=== PATIENT | male | born 1960 | race Caucasian/White ===

== ENCOUNTER 2018-08-16 09:48 | Inpatient (IN) | payer SELFPAY ==
[2018-08-16 10:16] LABS: #Basophils 0.1 thou/uL (0.0-0.2); #Eosinphils 0.1 thou/uL (0.0-0.7); #Lymphocytes 1.2 thou/uL (1.20-3.40); #Monocytes 0.8 thou/uL (0.11-0.59); #Neutrophils 7.5 thou/uL (1.40-6.50); %Basophils 0.7 % (0.0-1.0); %Eosinophils 0.6 % (0.0-10.0); %Lymphocytes 12.5 % (21.0-51.0); %Monocytes 7.8 % (0.0-10.0); %Neutrophils 78.4 % (42.0-75.0); Mean Corpuscular HGB CONC 32.7 g/dL (32.0-36.0); Mean Corpuscular Hemoglobin 30.1 pg (27.0-31.0); Mean Corpuscular Volume 92.1 fL (78.0-98.0); Mean Platelet Volume 6.7 fL (7.4-10.4); Platelet Count 483 thou/uL (130-400); RBC Distribution Width 11.8 % (11.5-14.5); Red Blood Cell (RBC) Count 4.65 mill/uL (4.70-6.10); White Blood Cell (WBC) Count 9.6 thou/uL (4.8-10.8)
[2018-08-16 10:39] LABS: ALT (SGPT) 29 U/L (8-55); AST (SGOT) 25 U/L (5-34); Albumin 4.1 g/dL (3.5-5.0); Alkaline Phosphatase 99 U/L (40-150); Anion Gap 15 mmol/L (10-20); BUN (Urea Nitrogen) 30 mg/dL (8.4-25.7); Bilirubin, Total 0.4 mg/dL (0.2-1.2); Calc. Creatinine Clearance 0 mL/min (70-130); Calcium 9.6 mg/dL (7.8-10.44); Carbon Dioxide 25 mmol/L (22-29); Chloride 102 mmol/L (98-107); Estimated GFR-MDRD 67; Globulin 2.8 g/dL (2.4-3.5); Glucose 145 mg/dL (70-105); Lipase 50 U/L (8-78); Potassium 4.5 mmol/L (3.5-5.1); Protein, Total 6.9 g/dL (6.0-8.3); Sodium 137 mmol/L (136-145)
--- NOTE | 2018-08-16 11:06 | RAD ---
RADIOGRAPH CHEST 1 VIEW: Date: 08/16/18 Time: 1036 HOURS HISTORY: 57-year-old female with dyspnea and chest pain. COMPARISON: 08/09/18. FINDINGS: Hyperinflation consistent with COPD. No pulmonary edema. The interstitial markings are less prominent on the current study compared to previous. Perhaps that is partly or entirely due to technical diffe rences. There are bilateral small to moderate size pleural effusions demonstrated on the CT angiogram of 08/09/18, that are underestimated in size on the single AP views. Prominent interstitial lung mar kings at the lung bases, left greater than right. No pneumothorax. Accounting for technical differenc es, there has probably been no major interval change. IMPRESSION: 1. Bilateral small pleural effusions. 2. Emphysema. 3. Probably no major interval change since 08/09/18. JN [] POS: CET
[2018-08-16 12:11] LABS: CKMB 10.3 ng/mL (0-6.6)
[2018-08-16] MEDS ORDERED: Furosemide 40 MG/4 ML VIAL ONE (12:24)
[2018-08-16] MEDS ORDERED: Nitroglycerin 2% Ointment 1 INCH/1 GM Packet ONE (12:24)
[2018-08-16] MEDS ORDERED: Aspirin Chewable 81 MG TAB ONE (12:24)
[2018-08-16 12:40] LABS: CK (CPK) 135 U/L (30-200); Magnesium 2.2 mg/dL (1.6-2.6); Phosphorus 3.1 mg/dL (2.3-4.7)
[2018-08-16 14:50] VITALS: BMI 17.9
[2018-08-16 14:52] LABS: Critical Call CKMB RESULT DECREASING
[2018-08-16] MEDS ORDERED: Acetaminophen 325 MG TAB PO PRN (15:45)
[2018-08-16] MEDS ORDERED: Zolpidem Tartrate 5 MG TAB PO PRN (15:45)
[2018-08-16] MEDS ORDERED: Ondansetron ODT 4 MG TAB PO PRN (15:45)
[2018-08-16] MEDS ORDERED: Nitroglycerin 0.4 MG TAB (25 Tab Bottle) SL PRN (15:48)
[2018-08-16] MEDS ORDERED: Communication Order-Pharmacy FS SCH (17:00)
--- NOTE | 2018-08-16 17:00 | HP ---
PRIMARY CARE PHYSICIAN: No PCP. HISTORY AND PHYSICAL: The patient was referred to [facility] by [facility]. The patient had an episode of chest pain 7 days ago. He said it was severe, tight, lasted hours, had some nausea with it, but no radiation, shortness of breath, or sweats that he notes. He has had about 2 months of dyspnea on exertion, worse the past 2 weeks. He denies any orthopnea or any paroxysmal nocturnal dyspnea. PAST MEDICAL HISTORY: None. MEDICATIONS: None. ALLERGIES: NONE. PAST SURGICAL HISTORY: T and A at 7 years of age. FAMILY HISTORY: Mother developed coronary artery disease in her 40s. His maternal grandparents had coronary artery disease. The patient is single. He smoked in the past for about 30 years, quit 20 years ago. Alcohol, he drinks 3 to 4 beers at night. He is an manufacturing electrician. REVIEW OF SYSTEMS: GENERAL: No headaches, dizziness, or fainting. HEENT: Eyes; some blurry vision at time. No double vision or flashing lights. Ears, nose, and throat; no ear pain or drainage. No nasal bleeding. No trouble swallowing. CARDIAC: See present illness. RESPIRATIONS: He said he has occasional wheezing. No cough of note. No history of asthma or COPD. GASTROINTESTINAL: No nausea, vomiting, diarrhea, or constipation except for nausea a week ago with his chest discomfort. GENITOURINARY: His stream is a little slow, but no hematuria or dysuria. MUSCULOSKELETAL: No pain or swelling in his arms or legs. NEUROLOGIC: No history of strokes, seizures, or focal weakness. PSYCHIATRIC: He has as he says typical anxieties and depression feelings occasionally, but has never had medicines. It is not a chronic or severe thing. SKIN: No bruising, bleeding, or rash. HEME/LYMPH: No tender or swollen lymph nodes in axilla, inguinal, or cervical area. PHYSICAL EXAMINATION: GENERAL: He is a pleasant gentleman, in no acute distress, looking a bit older than stated age, oriented x3. VITAL SIGNS: Done in the emergency room revealed blood pressure 124/88, pulse 93, respirations 14, temperature 97.5, O2 saturation 93% on room air. HEAD, EYES, EARS, NOSE, AND THROAT: Revealed pupils are equal, round, and reactive to light. Extraocular movements are intact. Sclerae are white. Tympanic membranes are clear. Nose is clear. Oral mucous membranes are wet. Dental hygiene is good. NECK: Supple without jugular venous distention, adenopathy, or thyromegaly. CHEST: Hyper-resonant with decreased somewhat vesicular breath sounds. Some scant rales in the bases. HEART: He has a regular rate and rhythm. He was a little bit tachycardic when I examined him about 120. He had no significant murmur or gallop. ABDOMEN: Soft. Bowel sounds are normal. There is no hepatosplenomegaly. No mass. No rebound. No bruits. EXTREMITIES: Revealed no cyanosis, clubbing, or edema. PULSES: Carotid, radial, and femoral pulses are intact. Pedal pulses are diminished symmetrically. SKIN: Warm and dry without bruises or rash. HEME/LYMPH: No tender or swollen lymph nodes in axilla, inguinal, or cervical area. NEUROLOGIC: Cranial nerves 2 through 12 are intact. Moves all extremities. Toes are downgoing. DIAGNOSTIC DATA: EKG: Regular sinus rhythm, poor R-wave progression in the precordial leads, T-wave inversion in the lateral precordial leads, reviewed by me. Chest x-ray shows marked hyperinflation, no cardiomegaly with some basilar small effusions, reviewed by me. LABORATORY DATA: CBC: White count 9.6, hemoglobin 14.0, platelet count 483,000. Chemistries: Metabolic profile shows lytes; sodium 137, potassium 4.5, CO2 of 25, BUN 30, creatinine 1.13, glucose 145, hemoglobin A1c 6.0. CK 135. Serial cardiac enzymes; CK-MB 10.3, then 9.0; troponin 0.054, then 0.058. BNP is 4636.1. ADMITTING DIAGNOSES: 1. Chest pain, suspicious for cardiac 1 week ago. 2. Dyspnea on exertion with chronic obstructive pulmonary disease. 3. Elevated troponins. 4. History of tobacco abuse in the past. PLAN: He has been started on aspirin. Echocardiogram has been ordered. Serial troponins will be continued. I have discussed this patient's situation with Dr. Pedro. He will see him today. For his COPD, I will start him on DuoNeb q.6 hours and Dulera 2 puffs twice a day. Suspect he will go to cardiac catheterization during this admission. Job ID: [id number]
[2018-08-16 17:14] LABS: Troponin I 0.061 ng/mL (< 0.028)
[2018-08-16] MEDS: Mometasone/Formoterol 120 PUFF INHALER INH SCH (18:43)
[2018-08-16] MEDS ORDERED: Nitroglycerin 2% Ointment 1 INCH/1 GM Packet TOP SCH (21:00)
--- NOTE | 2018-08-16 23:51 | CON ---
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 Over the past 2 weeks, he has began to notice exertional shortness of breath. At times, he may have some vague chest discomfort with those episodes, but in general, his main complaint is shortness of breath. He denies any peripheral edema, PND, or orthopnea. His breathing got so bad on August 09 that he went to his sister who lives next door and took 2 of her breathing treatments. He then began to have severe chest tightness and went to the emergency room in [place]. He was found to have CK-MB of 7.8, total CK of 116, and troponin I 0.044. Nitro paste was applied. He states that his discomfort rapidly resolved. He said they wanted to transport him here by helicopter, however, he declined and went home. Since then, he has continued to have significant exertional dyspnea. He started to have problems again with increased shortness of breath. He continued to have exertional dyspnea, so decided to come here directly for further evaluation. He denies any fever or cough. PAST MEDICAL HISTORY: He denies any history of hypertension, diabetes, hypercholesterolemia. MEDICATIONS: None. ALLERGIES: NONE. OPERATIONS: Tonsillectomy. SOCIAL HISTORY: He smoked one pack per day, but stopped 20 years ago. He states he has 3 beers per day. He works as an electrician marine. FAMILY HISTORY: Negative for coronary artery disease or myocardial infarction. REVIEW OF SYSTEMS: 12-point review of systems is otherwise unremarkable. PHYSICAL EXAMINATION: VITAL SIGNS: Blood pressure 117/68, pulse of 95. HEENT: PERRL. NECK: Supple. CHEST: Reveals expiratory wheezing throughout and some crackles at the bases. CARDIOVASCULAR EXAMINATION: S1, S2 normal without any S3, S4, or murmurs. ABDOMEN: Normal bowel sounds without tenderness, organomegaly. EXTREMITIES: Reveal no clubbing, cyanosis, or edema. NEUROLOGIC: Grossly intact. SKIN: Warm and dry. LABORATORY DATA: EKG revealed normal sinus rhythm, possible left atrial enlargement, lateral T-wave inversion. Chest CTA in [place] on August 09, 2018, revealed no evidence of pulmonary embolism. There are bilateral effusions. It is of note that there was no mention of any coronary artery calcifications. Chest x-ray here today revealed bilateral small pleural effusions, COPD. Hemoglobin 14.0, hematocrit 42.8, white count 9600, platelets 483,000. Sodium 137, potassium 4.5 , chloride 102, carbon dioxide 25, BUN 30, creatinine 1.13, glucose 145, BNP 4636. I do not see any troponins from the emergency room here. IMPRESSION: 1. Probable congestive heart failure with severely elevated BNP and finding of bilateral pleural effusions on chest x-ray. 2. Probable chronic obstructive pulmonary disease exacerbation. 3. Probable acute coronary artery syndrome with prolonged episode of chest discomfort and mildly elevated cardiac enzymes. 4. Former smoker. 5. ETOH use of 3 beers per day, although other he told other physicians that he has 5 drinks per day. If he does have a cardiomyopathy, it certainly could be alcohol- related. PLAN: Situation discussed with the patient. He needs an echocardiogram as well trending of his troponins. Fasting lipid profile will be obtained. With his current symptoms, it is recommended he undergo cardiac catheterization. Risks of catheterization were discussed including , myocardial infarction, dye reaction, vascular injury, CVA, transfusion, limb loss, renal loss, etc. Also risk of intervention with PTCA and stent placement discussed including , myocardial infarction, emergent CABG, restenosis, stent thrombosis, vessel perforation, etc. With uncertain as to his compliance, we would just place a bare-metal stent. Job ID: [id number] SATINDER
[2018-08-17] MEDS ORDERED: Sodium Chloride 0.9% 1,000 ML IV SCH ×2 (06:00→07:52)
[2018-08-17 06:10] LABS: Cardiac Risk 2.5 (Less than 4.5)
[2018-08-17] MEDS ORDERED: Heparin 10,000 UNITS/1 ML VIAL ONE (06:34)
[2018-08-17] MEDS ORDERED: Lidocaine 1% (PF) 30 ML VIAL ONE (06:42)
[2018-08-17] MEDS: Mometasone/Formoterol 120 PUFF INHALER INH SCH ×2 (06:43→18:29)
[2018-08-17] MEDS ORDERED: Fentanyl 100 MCG/2 ML VIAL ONE (07:07)
[2018-08-17] MEDS ORDERED: Midazolam HCl 2 mg/2 ml Vial ONE (07:08)
[2018-08-17] MEDS ORDERED: Acetaminophen/Codeine 30-300mg Tablet PO PRN ×2 (07:51)
[2018-08-17] MEDS ORDERED: Sodium Chloride 0.9% 200 ML IV PRN (07:51)
[2018-08-17] MEDS: Carvedilol 3.125 MG TAB PO SCH ×2 (09:00→17:48)
[2018-08-17] MEDS ORDERED: Aspirin 325 MG TAB PO SCH (09:00)
[2018-08-17] MEDS: Lisinopril 2.5 MG TAB PO SCH (09:01)
[2018-08-17] MEDS: Aspirin 81 mg Enteric Coated Tablet PO SCH (09:01)
[2018-08-17] MEDS: Furosemide 20 MG TAB PO SCH (09:01)
--- NOTE | 2018-08-17 14:22 | PRG ---
DATE OF SERVICE: 08/17/2018 SUBJECTIVE: A 57-year-old male with tobacco and alcohol dependence, presented to the emergency room yesterday with worsening shortness of breath. His shortness of breath is slightly better. He underwent cardiac catheterization today that showed no flow-limiting disease. He denies any chest pain at this time. No cough reported. REVIEW OF SYSTEMS: All other review of systems was reviewed and was found negative. PHYSICAL EXAMINATION: VITAL SIGNS: Temperature 97.7, pulse rate of 87, blood pressure of 108/76, respirations of 16, and O2 saturation 97% on room air. GENERAL: A 57-year-old male, in no apparent distress. LUNGS: Showed diminished air entry at bilateral bases. No wheezing, rales, or rhonchi. No accessory muscle use at rest. HEART: S1 and S2 present. Regular rate and rhythm. No heaves or pulsation. ABDOMEN: Soft and nontender. Bowel sounds present. No rebound or guarding. EXTREMITIES: No edema or calf tenderness. NEUROLOGIC: Grossly nonfocal. Tone and power in normal range. PSYCHIATRIC: Normal affect. Alert, awake, and oriented x3. LABORATORY FINDINGS: Hemoglobin A1c 6.0. Troponin 0.058. BNP 4636. Telemetry monitoring by my review showed sinus rhythm. Chest x-ray by my review showed bilateral small pleural effusion with emphysema. IMPRESSION: 1. New onset systolic heart failure. 2. Nonischemic cardiomyopathy. 3. Chronic alcoholism. 4. Former smoker. 5. Chronic kidney disease, stage 2. 6. Impaired glucose tolerance. 7. Type 2 myocardial infarction secondary to demand ischemia. 8. Thrombocytosis of unclear etiology. PLAN: The patient underwent cardiac catheterization today that showed no flow-limiting disease. He has been started on low-dose aspirin along with carvedilol, Lasix, and JOSIAH inhibitor. Nitro patch will be discontinued. He has been extensively counseled on congestive heart failure. Dietitian has been consulted as well. We will recheck labs in a.m. LifeVest at discharge. Echocardiogram report pending at this time. Plan was discussed with the patient. He stated understanding. Job ID: [id number]
[2018-08-17] MEDS ORDERED: Iopamidol 370 76% 100 ML VIAL ONE (20:14)
[2018-08-17] MEDS ORDERED: Iopamidol 370 76% 50 ML VIAL FS ONE (20:14)
[2018-08-17] MEDS ORDERED: Atorvastatin Calcium 20 MG TAB PO SCH (21:00)
[2018-08-18 06:43] LABS: Anion Gap 11 mmol/L (10-20); BUN (Urea Nitrogen) 23 mg/dL (8.4-25.7); Calc. Creatinine Clearance 69 mL/min (70-130); Calcium 8.7 mg/dL (7.8-10.44); Carbon Dioxide 26 mmol/L (22-29); Chloride 105 mmol/L (98-107); Estimated GFR-MDRD 86; Glucose 83 mg/dL (70-105); Potassium 4.2 mmol/L (3.5-5.1); Sodium 138 mmol/L (136-145)
[2018-08-18] MEDS: Mometasone/Formoterol 120 PUFF INHALER INH SCH (07:35)
[2018-08-18] MEDS: Lisinopril 2.5 MG TAB PO SCH (08:29)
[2018-08-18] MEDS: Carvedilol 3.125 MG TAB PO SCH (08:29)
[2018-08-18] MEDS: Aspirin 81 mg Enteric Coated Tablet PO SCH (08:29)
[2018-08-18] MEDS: Furosemide 20 MG TAB PO SCH (08:29)
--- NOTE | 2018-08-18 11:01 | PDOC.PN ---
- Subjective Encounter Start Date: 08/18/18 (f/u HFrEF) Encounter Start Time: 10:59 Subjective: Pt without complaints, reports he is feeling much better -: denies any new symptoms. States he is ready to go home. - Objective Resuscitation Status - Order Detail: 08/16/18 15:43 Resuscitation Status Routine Resuscitation Status: FULL: Full Resuscitation Vital Signs & Weight: Vital Signs (12 hours) Temp Pulse Resp BP BP Pulse Ox 08/18/18 08:26 97.8 F 87 15 112/70 99 08/18/18 07:34 79 16 91 L 08/18/18 04:00 97.7 F 86 18 120/86 96 08/18/18 00:41 86 16 91 L Weight Admit Weight 121 lb 6 oz Weight 121 lb 6 oz I&O: 08/17/18 08/18/18 08/19/18 06:59 06:59 06:59 Intake Total 850 1220 Output Total 750 Balance 850 470 Result Diagrams: 08/16/18 10:08 08/18/18 05:20 EKG Reviewed by me: Yes (tele - sinus 80's) Phys Exam - Physical Examination Constitutional: NAD Respiratory: no wheezing, no rales, no rhonchi, clear to auscultation bilateral Cardiovascular: RRR, no significant murmur Gastrointestinal: soft, non-tender, no distention, positive bowel sounds Musculoskeletal: no edema Psychiatric: normal affect Dx/Plan (1) Systolic heart failure Code(s): I50.20 - UNSPECIFIED SYSTOLIC (CONGESTIVE) HEART FAILURE Status: Acute Qualifiers: Heart failure chronicity: acute Qualified Code(s): I50.21 - Acute systolic (congestive) heart failure (2) Cardiomyopathy Code(s): I42.9 - CARDIOMYOPATHY, UNSPECIFIED Status: Acute Qualifiers: Cardiomyopathy type: unspecified Qualified Code(s): I42.9 - Cardiomyopathy , unspecified (3) Alcoholism Code(s): F10.20 - ALCOHOL DEPENDENCE, UNCOMPLICATED Status: Chronic (4) Type 2 myocardial infarction Code(s): I21.A1 - MYOCARDIAL INFARCTION TYPE 2 Status: Acute - Plan * Sx improved - on meds initiated by Cardiology including beta-burke, monica-i, diuretic, aspirin, statin * Lifevest ordered given EF 5-10% - by report pt is unable to afford this * will d/c dulera and monitor breathing, change nebs to prn * * d/c to home when cleared by Cardiology * dvt prophy - ambulatory * gi prophy - not indictaed * code status full. * * pt remains at high risk in current condition * reviewed plan of care with patient, no questions or further needs at end of eval
[2018-08-18 11:42] VITALS: BP 96/56; TEMP 97.5
--- NOTE | 2018-08-18 16:32 | PDOC.CTH ---
Cardiology Progress Note - Subjective The pt seen and examined. No overnight events. No cardiac complaints. - Objective Vital Signs Temp Pulse Pulse Pulse Resp BP BP 08/18/18 11:19 81 88 96/56 L 119/71 08/18/18 11:05 97.5 F L 88 16 08/18/18 08:26 97.8 F 87 15 08/18/18 07:34 79 16 BP Pulse Ox 08/18/18 11:19 08/18/18 11:05 96/59 L 95 08/18/18 08:26 112/70 99 08/18/18 07:34 91 L Admit Weight 121 lb 6 oz Weight 121 lb 6 oz 08/17/18 08/18/18 08/19/18 06:59 06:59 06:59 Intake Total 850 1220 327 Output Total 750 Balance 850 470 327 - Physical Examination General/Neuro: alert & oriented x3 Neck: no JVD present Lungs: CTA Heart: RRR Abdomen: soft Extremities: other: (No edema) - Telemetry Telemetry Rhythm: SR - Labs Result Diagrams: 08/16/18 10:08 08/18/18 05:20 Troponin/CKMB CK-MB (CK-2) 9.0 ng/mL (0-6.6) H* 08/16/18 13:58 Troponin I 0.061 ng/mL (< 0.028) H 08/16/18 16:40 - Assessment/Plan 1. Acute on Chronic Systolic HF - stable with RA; 2. non-ischemia CMY with S/p LHC on 08/16/2018 with normal coronary arteries - The pt refused to wear LifeVest due to the cost even after long discussion about his EF and the benefit of LifeVest. 3. Prob. COPD - On Neb PRN 4. Ex-smoker, quit about 20 yrs ago. 5. ETOH abuse (3 beers/day) - ETOH cessation education given to the pt. MAR reviewed * Echo on 08/17/2018 with EF 5-10%, mod MR, mild TR * the pt will f/u with Dr Pedro's office within 2-4wks. Review of Systems - Review of Systems Constitutional: reports: no symptoms reported EENTM: reports: no symptoms reported Respiratory: reports: no symptoms reported Cardiac (ROS): reports: no symptoms reported ABD/GI: reports: no symptoms reported : reports: no symptoms reported Musculoskeletal: reports: no symptoms reported
--- NOTE | 2018-08-18 20:02 | DIS ---
DATE OF ADMISSION: 08/16/2018 DATE OF DISCHARGE: 08/18/2018 CONSULTANTS: Dr. Pedro of Cardiology. PROCEDURE PERFORMED: Cardiac catheterization which showed normal coronary arteries and severely impaired left ventricular function. MEDICATIONS: Reconciled. Home medications were none on admission. New medications: 1. Aspirin 81 mg daily. 2. Atorvastatin 20 mg at bedtime. 3. Carvedilol 3.125 mg b.i.d. with meals. 4. Lasix 20 mg once daily. 5. Lisinopril 2.5 mg tablet 1-1/2 half tablet p.o. daily. 6. Nitroglycerin 0.4 mg sublingual every 5 minutes as needed for chest pain. Prescriptions provided for 30 days for all of these medications, and further refills to come from Dr. Pedro. FOLLOWUP: 1. Followup is with Dr. Pedro on 09/18/2018 at 12:15 pm. 2. Follow up with cardiac rehab in [place]. 3. Follow up with [facility] on 08/20 at 3 p.m. HISTORY OF PRESENT ILLNESS: Mr. Childress is a 57-year-old male who presented to the emergency room after an episode of chest pain a week prior that was severe, and chest tightness and lasted hours. He had about two months of dyspnea on exertion, which worsened over the past couple of weeks. Please see history and physical for more details. HOSPITAL COURSE: The patient was evaluated for an elevated troponin and underwent cardiac catheterization with Dr. Pedro. He was found to have normal coronary arteries and severely impaired left ventricular function. This was further characterized on echocardiogram with an EF estimated at 5% to 10%, left ventricular function severely depressed, moderately enlarged right ventricular cavity, moderate mild regurgitation and mild tricuspid regurgitation. Because of all of this, he was initiated on medications to include a beta burke, low-dose JOSIAH inhibitor, statin, and furosemide. It was recommended that patient have a LifeVest, however, he is unable to afford this. His medications have been titrated and he is overall symptomatically improved. The patient is cleared from by Cardiology, Dr. Montoya for discharge to home. He is aware of the risks associated with a systolic function being this low. It is recommended that he follow up with the Heart failure Clinic in [place], Dr. Pedro, as well as the [facility]. The patient does have daily alcohol use, and has been counseled on the importance of abstaining from alcohol. The patient likely does have a diagnosis of COPD with a remote history of tobacco abuse. He was managed with Dulera here as well as nebulizer therapy. This will be discontinued at time of discharge, and the importance of followup with the [facility] was discussed. FINAL DIAGNOSES: 1. Systolic heart failure with severely depressed left ventricular function. Estimated EF of 5% to 10%. 2. Nonischemic cardiomyopathy. 3. Chronic alcoholism. 4. Type 2 myocardial infarction. SECONDARY DIAGNOSES: Probable chronic obstructive pulmonary disease and history of tobacco abuse. PHYSICAL EXAMINATION: VITAL SIGNS: On day of discharge, please see the note on chart. CULP FINDINGS AND TEST RESULTS: CBC; 9.6, 14.0, 42.8, 483. Chemistry; today, 138, 4.2, 105, 26, 23, 0.91, 83. Troponin 0.054, 0.058, 0.061. Triglycerides 45, cholesterol 132, LDL 71, HDL 52. BNP on admission 4636. LFTs: T-bilirubin 0.4, AST 25, ALT 29, alkaline phosphatase 99, total protein 6.9, albumin 4.1. Lipase was 50. Chest x-ray on admission, bilateral small pleural effusions, emphysema, probably no major interval change since 08/09. DIET: Heart healthy and fluid restricted to 1800 mL per day. ACTIVITY: As tolerated. The patient has received heart failure precautions, to perform daily weights, to contact Dr. Pedro's office with any concerns at any time. DISCHARGE DISPOSITION: Home. CODE STATUS: Full. Reviewed with the patient this hospitalization, the importance of followup and to seek care precautions. No questions or further needs at the end of evaluation. TOTAL TIME COORDINATING DISCHARGE: 30 minutes. Job ID: [id number] MTDD
== END 2018-08-18 14:49 | disposition home or self-care (01) | DRG 280 ==
LOC: ERS 09:48 → ERHOLD 13:42 → OBSVTOIN 13:42 → 2SW 14:50 → 2NO 08-17 19:53
PROVIDERS: ADMIT Internal Medicine; ATTEND Internal Medicine
PROC: 4A023N7 Measurement of Cardiac Sampling and Pressure, Left Heart, Percutaneous Approach (ICD-10-PCS; principal; 2018-08-16)
PROC: B2111ZZ Fluoroscopy of Multiple Coronary Arteries using Low Osmolar Contrast (ICD-10-PCS; 2018-08-16)
PROC: B2151ZZ Fluoroscopy of Left Heart using Low Osmolar Contrast (ICD-10-PCS; 2018-08-16)
DX: I13.0 Hypertensive heart and chronic kidney disease with heart failure and stage 1 through stage 4 chronic kidney disease, or unspecified chronic kidney disease (principal); I21.A1 Myocardial infarction type 2; I50.23 Acute on chronic systolic (congestive) heart failure; J44.1 Chronic obstructive pulmonary disease with (acute) exacerbation; D47.3 Essential (hemorrhagic) thrombocythemia; N18.2 Chronic kidney disease, stage 2 (mild); I08.1 Rheumatic disorders of both mitral and tricuspid valves; F10.20 Alcohol dependence, uncomplicated; I42.9 Cardiomyopathy, unspecified; Z87.891 Personal history of nicotine dependence; Z90.89 Acquired absence of other organs; Z72.89 Other problems related to lifestyle
CPT/HCPCS: 36415; 71045; 80048; 80053; 80061; 82550; 82553; 83036; 83690; 83735; 83880; 84100; 84484; 85025; 85347; 93005; 93306; 93458; 93798; 94640; 94664; 96374; 99152; 99153; C1769; J1644; J1940; J2001; J2250; J3010; J7620; Q9967

== ENCOUNTER 2022-06-25 21:06 | Inpatient (IN) | payer SELFPAY ==
[2022-06-25 21:41] LABS: #Eosinphils 0.1 thou/uL (0.0-0.7); #Lymphocytes 0.9 thou/uL (1.20-3.40); #Monocytes 0.8 thou/uL (0.11-0.59); #Neutrophils 7.3 thou/uL (1.40-6.50); %Basophils 0.3 % (0.0-1.0); %Eosinophils 1.6 % (0.0-10.0); %Monocytes 9.1 % (0.0-10.0); Hemoglobin 11.9 g/dL (14.0-18.0); Mean Corpuscular HGB CONC 32.6 g/dL (32.0-36.0); Mean Corpuscular Hemoglobin 31.9 pg (27.0-31.0); Mean Corpuscular Volume 97.9 fl (78.0-98.0); Mean Platelet Volume 6.9 fL (7.4-10.4); Platelet Count 366 10x3/uL (130-400); RBC Distribution Width 11.8 % (11.5-14.5); Red Blood Cell (RBC) Count 3.72 mill/uL (4.70-6.10); White Blood Cell (WBC) Count 9.3 10x3/uL (4.8-10.8)
[2022-06-25] MEDS ORDERED: Furosemide 40 MG/4 ML VIAL ONE (21:57)
[2022-06-25] MEDS ORDERED: Aspirin Chewable 81 MG TAB ONE (21:57)
[2022-06-25 22:02] LABS: ALT (SGPT) 33 U/L (8-55); AST (SGOT) 25 U/L (5-34); Albumin 3.6 g/dL (3.4-4.8); Alkaline Phosphatase 87 U/L (40-110); Anion Gap 11 mmol/L (10-20); BUN (Urea Nitrogen) 19 mg/dL (8.4-25.7); Bilirubin, Total 0.2 mg/dL (0.2-1.2); CK (CPK) 67 U/L (30-200); Calc. Creatinine Clearance 0 mL/min (70-130); Calcium 8.8 mg/dL (7.8-10.44); Carbon Dioxide 31 mmol/L (23-31); Chloride 103 mmol/L (98-107); Estimated GFR 98; Globulin 2.5 g/dL (2.4-3.5); Glucose 98 mg/dL (80-115); Potassium 4.7 mmol/L (3.5-5.1); Protein, Total 6.1 g/dL (5.8-8.1); Sodium 140 mmol/L (136-145)
[2022-06-25 22:24] LABS: CKMB 6.2 ng/mL (0-6.6)
[2022-06-26] MEDS ORDERED: Acetaminophen 325 MG TAB PO PRN (00:03)
[2022-06-26] MEDS ORDERED: Acetaminophen 650 MG Suppository PR PRN (00:03)
[2022-06-26] MEDS ORDERED: Ipratropium/Albuterol 3 ML NEB NEB PRN (00:12)
[2022-06-26 01:49] LABS: Troponin I 0.058 ng/mL (< 0.028)
[2022-06-26 05:18] LABS: #Basophils 0.1 thou/uL (0.0-0.2); #Eosinphils 0.2 thou/uL (0.0-0.7); #Lymphocytes 0.9 thou/uL (1.20-3.40); #Monocytes 0.9 thou/uL (0.11-0.59); #Neutrophils 7.1 thou/uL (1.40-6.50); %Basophils 0.6 % (0.0-1.0); %Lymphocytes 9.4 % (21.0-51.0); %Monocytes 10.2 % (0.0-10.0); %Neutrophils 77.7 % (42.0-75.0); Hemoglobin 12.4 g/dL (14.0-18.0); Mean Corpuscular HGB CONC 33.1 g/dL (32.0-36.0); Mean Corpuscular Hemoglobin 32.4 pg (27.0-31.0); Mean Corpuscular Volume 97.6 fl (78.0-98.0); Mean Platelet Volume 7.1 fL (7.4-10.4); Platelet Count 348 10x3/uL (130-400); RBC Distribution Width 11.7 % (11.5-14.5); Red Blood Cell (RBC) Count 3.83 mill/uL (4.70-6.10); White Blood Cell (WBC) Count 9.2 10x3/uL (4.8-10.8)
[2022-06-26 05:21] LABS: Hemoglobin A1c 5.8 % (4.0-6.0)
[2022-06-26 05:45] LABS: Troponin I 0.054 ng/mL (< 0.028)
[2022-06-26 05:49] LABS: Anion Gap 14 mmol/L (10-20); BUN (Urea Nitrogen) 21 mg/dL (8.4-25.7); Calc. Creatinine Clearance 56 mL/min (70-130); Calcium 8.9 mg/dL (7.8-10.44); Carbon Dioxide 33 mmol/L (23-31); Cardiac Risk 2.3 (Less than 4.5); Chloride 100 mmol/L (98-107); Cholesterol 147 mg/dl (< 200 Desired); Estimated GFR 82; Glucose 141 mg/dL (80-115); HDL Cholesterol 64 mg/dL (>60 Neg Risk); LDL Cholesterol, Calculated 72 mg/dL; Potassium 4.5 mmol/L (3.5-5.1); Sodium 142 mmol/L (136-145); Triglycerides 54 mg/dL (Less than 150)
[2022-06-26] MEDS ORDERED: predniSONE 20 MG TAB PO SCH (08:45)
[2022-06-26] MEDS ORDERED: Furosemide 40 MG/4 ML VIAL SLOW IVP SCH (09:00)
[2022-06-26] MEDS ORDERED: Ipratropium Bromide 2.5 ml Neb NEB SCH (10:30)
[2022-06-26] MEDS ORDERED: Aspirin 81 mg Enteric Coated Tablet PO SCH (11:00)
[2022-06-26] MEDS ORDERED: Lisinopril 2.5 MG TAB PO SCH (11:00)
[2022-06-26] MEDS ORDERED: Lisinopril 5 MG TAB PO SCH (11:15)
[2022-06-26] MEDS: Ipratropium 200 Puff Oral Inhaler INH SCH ×4 (11:20→23:46)
[2022-06-26] MEDS: Albuterol HFA (OR) 200 PUFF INH INH SCH ×4 (11:20→23:45)
[2022-06-26] MEDS: Atorvastatin Calcium 40 MG TAB PO SCH (21:07)
[2022-06-27] MEDS: Albuterol HFA (OR) 200 PUFF INH INH SCH ×6 (04:26→23:28)
[2022-06-27] MEDS: Ipratropium 200 Puff Oral Inhaler INH SCH ×6 (04:27→23:28)
[2022-06-27 05:11] LABS: #Eosinphils 0.1 thou/uL (0.0-0.7); #Lymphocytes 1.2 thou/uL (1.20-3.40); #Monocytes 0.9 thou/uL (0.11-0.59); #Neutrophils 8.6 thou/uL (1.40-6.50); %Basophils 0.3 % (0.0-1.0); %Eosinophils 0.6 % (0.0-10.0); %Lymphocytes 10.7 % (21.0-51.0); %Monocytes 8.4 % (0.0-10.0); %Neutrophils 80.1 % (42.0-75.0); Hemoglobin 13.3 g/dL (14.0-18.0); Mean Corpuscular HGB CONC 31.6 g/dL (32.0-36.0); Mean Corpuscular Hemoglobin 30.6 pg (27.0-31.0); Mean Corpuscular Volume 96.9 fl (78.0-98.0); Mean Platelet Volume 7.2 fL (7.4-10.4); Platelet Count 348 10x3/uL (130-400); RBC Distribution Width 11.7 % (11.5-14.5); Red Blood Cell (RBC) Count 4.35 mill/uL (4.70-6.10); White Blood Cell (WBC) Count 10.8 10x3/uL (4.8-10.8)
[2022-06-27 05:55] LABS: Anion Gap 12 mmol/L (10-20); BUN (Urea Nitrogen) 23 mg/dL (8.4-25.7); Calc. Creatinine Clearance 64 mL/min (70-130); Carbon Dioxide 33 mmol/L (23-31); Chloride 101 mmol/L (98-107); Estimated GFR 98; Glucose 82 mg/dL (80-115); Potassium 4.6 mmol/L (3.5-5.1); Sodium 141 mmol/L (136-145)
[2022-06-27] MEDS ORDERED: Furosemide 20 MG TAB PO SCH (09:00)
[2022-06-27] MEDS ORDERED: Lisinopril 5 MG TAB PO SCH (09:00)
[2022-06-27] MEDS ORDERED: Furosemide 20 MG/2 ML VIAL SLOW IVP SCH (09:15)
[2022-06-27 09:34] VITALS: BMI 16.7
[2022-06-27] MEDS: Aspirin 81 mg Enteric Coated Tablet PO SCH (09:36)
[2022-06-27] MEDS: predniSONE 20 MG TAB PO SCH (09:36)
[2022-06-27] MEDS: Atorvastatin Calcium 40 MG TAB PO SCH (21:17)
[2022-06-28] MEDS: Albuterol HFA (OR) 200 PUFF INH INH SCH ×6 (03:20→23:04)
[2022-06-28] MEDS: Ipratropium 200 Puff Oral Inhaler INH SCH ×6 (03:20→23:04)
[2022-06-28 04:50] LABS: #Basophils 0.1 thou/uL (0.0-0.2); #Eosinphils 0.2 thou/uL (0.0-0.7); #Lymphocytes 1.4 thou/uL (1.20-3.40); #Monocytes 1.1 thou/uL (0.11-0.59); #Neutrophils 9.5 thou/uL (1.40-6.50); %Basophils 0.6 % (0.0-1.0); %Eosinophils 1.3 % (0.0-10.0); %Lymphocytes 11.4 % (21.0-51.0); %Monocytes 8.9 % (0.0-10.0); %Neutrophils 77.9 % (42.0-75.0); Hemoglobin 12.9 g/dL (14.0-18.0); Mean Corpuscular HGB CONC 32.7 g/dL (32.0-36.0); Mean Corpuscular Hemoglobin 31.7 pg (27.0-31.0); Platelet Count 337 10x3/uL (130-400); RBC Distribution Width 11.7 % (11.5-14.5); Red Blood Cell (RBC) Count 4.07 mill/uL (4.70-6.10); White Blood Cell (WBC) Count 12.2 10x3/uL (4.8-10.8)
[2022-06-28 05:10] LABS: Anion Gap 12 mmol/L (10-20); BUN (Urea Nitrogen) 30 mg/dL (8.4-25.7); Calc. Creatinine Clearance 65 mL/min (70-130); Calcium 9.4 mg/dL (7.8-10.44); Carbon Dioxide 31 mmol/L (23-31); Chloride 101 mmol/L (98-107); Estimated GFR 98; Glucose 91 mg/dL (80-115); Potassium 4.2 mmol/L (3.5-5.1); Sodium 140 mmol/L (136-145)
[2022-06-28 08:35] LABS: Magnesium 1.9 mg/dL (1.6-2.6)
[2022-06-28] MEDS ORDERED: Non-Formulary Item 1 EACH (Vortioxetine Hydrobromide [Trintellix] 10 MG Tablet) PO SCH (09:00)
[2022-06-28] MEDS: Aspirin 81 mg Enteric Coated Tablet PO SCH (09:11)
[2022-06-28] MEDS: predniSONE 20 MG TAB PO SCH (09:11)
[2022-06-28] MEDS ORDERED: Albuterol 200 PUFF (6.7GM INHALER) INH SCH (14:30)
[2022-06-28] MEDS: Atorvastatin Calcium 40 MG TAB PO SCH (20:13)
[2022-06-29] MEDS: Albuterol HFA (OR) 200 PUFF INH INH SCH ×2 (03:20→07:37)
[2022-06-29] MEDS: Ipratropium 200 Puff Oral Inhaler INH SCH ×2 (03:20→07:37)
[2022-06-29 04:54] LABS: #Eosinphils 0.1 thou/uL (0.0-0.7); #Lymphocytes 1.4 thou/uL (1.20-3.40); #Monocytes 0.9 thou/uL (0.11-0.59); #Neutrophils 8.2 thou/uL (1.40-6.50); %Basophils 0.3 % (0.0-1.0); %Lymphocytes 12.7 % (21.0-51.0); %Monocytes 8.4 % (0.0-10.0); %Neutrophils 77.6 % (42.0-75.0); Hemoglobin 12.3 g/dL (14.0-18.0); Mean Corpuscular HGB CONC 31.1 g/dL (32.0-36.0); Mean Corpuscular Hemoglobin 29.9 pg (27.0-31.0); Mean Corpuscular Volume 96.2 fl (78.0-98.0); Mean Platelet Volume 7.1 fL (7.4-10.4); Platelet Count 340 10x3/uL (130-400); RBC Distribution Width 11.7 % (11.5-14.5); Red Blood Cell (RBC) Count 4.12 mill/uL (4.70-6.10); White Blood Cell (WBC) Count 10.6 10x3/uL (4.8-10.8)
[2022-06-29 05:03] LABS: Anion Gap 13 mmol/L (10-20); BUN (Urea Nitrogen) 28 mg/dL (8.4-25.7); Calc. Creatinine Clearance 66 mL/min (70-130); Calcium 8.8 mg/dL (7.8-10.44); Carbon Dioxide 30 mmol/L (23-31); Chloride 103 mmol/L (98-107); Estimated GFR 98; Glucose 98 mg/dL (80-115); Potassium 4.5 mmol/L (3.5-5.1); Sodium 141 mmol/L (136-145)
[2022-06-29] MEDS ORDERED: Magnesium 2 GM/50 ML(in water) 2 GM in Premix Bag 1 BAG IVPB SCH (05:30)
[2022-06-29 08:08] VITALS: BP 148/69; TEMP 97.2
[2022-06-29] MEDS ORDERED: hydrOXYzine 25 MG TAB PO PRN (08:25)
[2022-06-29] MEDS ORDERED: Albuterol HFA (OR) 200 PUFF INH INH PRN (08:41)
[2022-06-29] MEDS ORDERED: Ipratropium 200 Puff Oral Inhaler INH PRN (08:42)
[2022-06-29] MEDS ORDERED: Lisinopril 2.5 MG TAB PO SCH (09:00)
[2022-06-29] MEDS ORDERED: Furosemide 20 MG TAB PO SCH (09:00)
[2022-06-29] MEDS ORDERED: Carvedilol 3.125 MG TAB PO SCH (17:00)
== END 2022-06-29 09:09 | disposition left against medical advice (07) | DRG 280 ==
LOC: ERS 21:06 → 2NO 23:02 → OBSVTOIN 06-27 09:30
PROVIDERS: ADMIT Emergency Medicine; ATTEND Emergency Medicine
DX: I50.23 Acute on chronic systolic (congestive) heart failure (principal); I21.A1 Myocardial infarction type 2; J96.01 Acute respiratory failure with hypoxia; J44.1 Chronic obstructive pulmonary disease with (acute) exacerbation; I42.8 Other cardiomyopathies; I25.10 Atherosclerotic heart disease of native coronary artery without angina pectoris; F32.A Depression, unspecified; F90.9 Attention-deficit hyperactivity disorder, unspecified type; F17.210 Nicotine dependence, cigarettes, uncomplicated; D64.9 Anemia, unspecified; F10.90 Alcohol use, unspecified, uncomplicated; Z79.82 Long term (current) use of aspirin; Z79.899 Other long term (current) drug therapy; Z90.49 Acquired absence of other specified parts of digestive tract
CPT/HCPCS: 36415; 36416; 71045; 80048; 80053; 80061; 82550; 82553; 83036; 83735; 83880; 84443; 84484; 85025; 93005; 93306; 93798; 96374; 96376; G0378; J1650; J1940; J3475; J7512